=== PATIENT | male | born 2000 | race American Indian/Alaskan Native ===

== ENCOUNTER 2019-08-21 22:37 | Emergency (ER) | payer SELFPAY ==
--- NOTE | 2019-08-22 01:06 | XRay Report ---
LEFT HAND PREVIEWS INDICATION / CLINICAL INFORMATION: Left pinky deformity. COMPARISON: None available. FINDINGS: The proximal interphalangeal joint of the fifth finger is dislocated. No appreciable fracture. Signer Name: Shawn Maria MD Signed: 08/22/2019 1:01 AM Workstation Name: [id number]
[2019-08-22] MEDS ORDERED: BUPIVACAINE/PF (0.5%) 5 MG/1 ML 10 ML VIAL INFILTRATI ONE ×2 (02:30→02:31)
[2019-08-22] MEDS ORDERED: BUPIVACAINE/PF (0.25%) 2.5 MG/ML 30 ML VIAL INFILTRATI ONE (02:44)
[2019-08-22] MEDS ORDERED: IBUPROFEN 800 MG TAB PO ONE (03:07)
--- NOTE | 2019-08-22 03:07 | Emergency Department Report ---
ED Extremity Problem HPI - General Chief complaint: Extremity Injury, Upper Stated complaint: LT HAND INJURY Time Seen by Provider: 08/22/19 02:23 Source: family Mode of arrival: Ambulatory Limitations: No Limitations - History of Present Illness Initial comments: Patient is a 19-year-old -[place] male who was play fighting with his brother who suffered a left fifth digit dislocation at the proximal phalangeal segment. Patient states pain is 8 out of 10 in severity is worse with touching his finger. Patient has no other injuries at this time. - Related Data Previous Rx's Medication Instructions Recorded Last Taken Type Ibuprofen [Motrin 800 MG tab] 800 mg PO Q8HR PRN #10 tablet 08/22/19 Unknown Rx traMADoL [Ultram] 50 mg PO Q6HR PRN #10 tablet 08/22/19 Unknown Rx Allergies Allergy/AdvReac Type Severity Reaction Status Date / Time No Known Allergies Allergy Unverified 08/22/19 00:18 ED Review of Systems ROS: Stated complaint: LT HAND INJURY Other details as noted in HPI Comment: All other systems reviewed and negative ED Past Medical Hx - Past Medical History Previous Medical History?: Yes Additional medical history: Congenital Heart Disease - Surgical History Past Surgical History?: Yes Additional Surgical History: Open heart surgery - Social History Smoking Status: Never Smoker Substance Use Type: Marijuana - Medications Home Medications: Home Medications Medication Instructions Recorded Confirmed Last Taken Type Ibuprofen [Motrin 800 MG tab] 800 mg PO Q8HR PRN #10 tablet 08/22/19 Unknown Rx traMADoL [Ultram] 50 mg PO Q6HR PRN #10 tablet 08/22/19 Unknown Rx ED Physical Exam - General Limitations: No Limitations General appearance: alert, in no apparent distress - Head Head exam: Present: atraumatic, normocephalic - Eye Eye exam: Present: normal appearance - ENT ENT exam: Present: mucous membranes moist - Neck Neck exam: Present: normal inspection - Respiratory Respiratory exam: Absent: respiratory distress - Rectal Rectal exam: Present: deferred - Extremities Exam Extremities exam: Present: normal inspection - Expanded Upper Extremity Exam Left Hand Wrist exam: Present: tenderness, swelling, dislocation (at the fifth proximal interphalangeal joint). Absent: full ROM - Back Exam Back exam: Present: normal inspection - Neurological Exam Neurological exam: Present: alert, oriented X3 - Psychiatric Psychiatric exam: Present: normal affect, normal mood - Skin Skin exam: Present: warm, dry, intact, normal color. Absent: rash ED Course Vital Signs 08/21/19 23:53 Temperature 97.9 F Pulse Rate 58 L Respiratory 18 Rate Blood Pressure 137/79 O2 Sat by Pulse 99 Oximetry - Orthopedic Joint Reduction Joint #1 Consent Obtained: verbal consent Time Out Performed: Yes Side: left Joint Reduction Location: finger (PIP) Analgesia: digital block Local Anesthetic Used: Bupivicaine 0.5% Amount of Anesthetic Used (mls): 10 Technique Used: direct manipulation Post-Reduction Neuro Exam: intact Splint Applied: Yes (finger) Patient Tolerated Procedure: well ED Medical Decision Making - Radiology Data LEFT HAND PREVIEWS INDICATION / CLINICAL INFORMATION: Left pinky deformity. COMPARISON: None available. FINDINGS: The proximal interphalangeal joint of the fifth finger is dislocated. No appreciable fracture. Signer Name: Shawn Maria MD Signed: 08/22/2019 1:01 AM Workstation Name: [id number] Transcribed By: TM Dictated By: Shawn Maria MD Electronically Authenticated By: Shawn Maria MD Signed Date/Time: 08/22/19 0101 - Medical Decision Making Joint was relocated the patient be discharged home. Critical care attestation.: If time is entered above; I have spent that time in minutes in the direct care of this critically ill patient, excluding procedure time. ED Disposition Clinical Impression: Finger dislocation Qualifiers: Encounter type: initial encounter Qualified Code(s): S63.259A - Unspecified dislocation of unspecified finger, initial encounter Disposition: DC-01 TO HOME OR SELFCARE Is pt being admited?: No Does the pt Need Aspirin: No Condition: Stable Instructions: Finger Dislocation (ED) Referrals: ALLISON CASTRO MD [Staff Physician] - as needed Time of Disposition: 03:07
[2019-08-22 03:21] VITALS: BP 106/71
== END 2019-08-22 03:20 | disposition home or self-care (01) ==
LOC: ED 22:37
DX: S63.287A Dislocation of proximal interphalangeal joint of left little finger, initial encounter (principal); Z98.890 Other specified postprocedural states; F12.10 Cannabis abuse, uncomplicated; Y04.8XXA Assault by other bodily force, initial encounter; Y93.89 Activity, other specified; Y92.89 Other specified places as the place of occurrence of the external cause; Y99.8 Other external cause status